=== PATIENT | male | born 1980 | race Caucasian/White ===

== ENCOUNTER 2022-04-13 04:14 | Day surgery (SDC) | payer OTHER ==
[2022-04-10 10:23] VITALS: BMI 25.8
[2022-04-13] MEDS ORDERED: PROPOFOL 20 ML ONE ×2 (12:51→13:13)
[2022-04-13] MEDS ORDERED: LIDOCAINE HCL/PF 2% SDV 5ML VIAL ONE (12:51)
[2022-04-13] MEDS ORDERED: MIDAZOLAM HCL 2 MG/2 ML SINGLE DOSE VIAL ONE (12:51)
[2022-04-13] MEDS ORDERED: IOHEXOL 300 MG/ML INFUS..BTL IV ONE ×2 (13:32)
[2022-04-13] MEDS ORDERED: ONDANSETRON 4 MG/2 ML VIAL IVPUSH PRN (14:23)
[2022-04-13] MEDS ORDERED: oxyCODONE HCL 5 MG TABLET PO PRN ×2 (14:23)
[2022-04-13 14:28] VITALS: RESP 18
[2022-04-13] MEDS ORDERED: LACTATED RINGERS SOLUTION 1,000 ML IV SCH (14:30)
[2022-04-13 14:54] VITALS: TEMP 97.8
[2022-04-13 15:38] VITALS: BP 123/80; PULSE 66
== END 2022-04-13 15:35 | disposition home or self-care (01) ==
LOC: JASU-SURG 04:14
PROVIDERS: ATTEND Urology
PROC: 0TJ98ZZ Inspection of Ureter, Via Natural or Artificial Opening Endoscopic (ICD-10-PCS; 2022-04-13)
PROC: BT1DYZZ Fluoroscopy of Right Kidney, Ureter and Bladder using Other Contrast (ICD-10-PCS; principal; 2022-04-13 13:09)
DX: N20.0 Calculus of kidney (principal); R39.12 Poor urinary stream
CPT/HCPCS: 76000-TC-FY; 94760; C9803-CS; U0003; U0005

== ENCOUNTER 2022-07-20 04:01 | Day surgery (SDC) | payer OTHER ==
[2022-07-16 15:42] VITALS: BMI 26.6
[2022-07-20] MEDS ORDERED: MIDAZOLAM HCL 2 MG/2 ML SINGLE DOSE VIAL ONE (16:40)
[2022-07-20] MEDS ORDERED: ONDANSETRON 4 MG/2 ML VIAL ONE (16:53)
[2022-07-20] MEDS ORDERED: KETOROLAC TROMETHAMINE 30 MG/1 ML VIAL ONE (16:53)
[2022-07-20] MEDS ORDERED: PROPOFOL 20 ML ONE (16:53)
[2022-07-20 17:26] VITALS: RESP 16
[2022-07-20 20:30] VITALS: BP 134/83; PULSE 74; TEMP 98
== END 2022-07-20 18:15 | disposition home or self-care (01) ==
LOC: JASU-SURG 04:01
PROVIDERS: ATTEND Urology
PROC: 0TF3XZZ Fragmentation in Right Kidney Pelvis, External Approach (ICD-10-PCS; principal; 2022-07-20 15:30)
DX: N20.0 Calculus of kidney (principal)

== ENCOUNTER 2022-12-21 04:08 | Day surgery (SDC) | payer OTHER ==
[2022-12-17 12:12] VITALS: BMI 29.0
[2022-12-21] MEDS ORDERED: MIDAZOLAM HCL 2 MG/2 ML SINGLE DOSE VIAL ONE (14:19)
[2022-12-21 14:58] VITALS: RESP 20
[2022-12-21 15:46] VITALS: BP 114/86; PULSE 71; TEMP 97.8
== END 2022-12-21 15:50 | disposition home or self-care (01) ==
LOC: JASU-SURG 04:08
PROVIDERS: ATTEND Urology
PROC: 0TF4XZZ Fragmentation in Left Kidney Pelvis, External Approach (ICD-10-PCS; principal; 2022-12-21 13:00)
DX: N20.0 Calculus of kidney (principal)